=== PATIENT | female | born 1960 ===

== ENCOUNTER → 2018-06-20 | Outpatient (CLI) | payer OTHER ==
--- NOTE | 2018-06-20 13:57 | KCIC ---
MR of the left hip Indication: Primary osteoarthritis of the left hip. Progressing left hip pain for several months. Technique: Standard multiplanar sequences are obtained. FINDINGS: Artifact: Moderate to severe motion degradation. Bones: No bone lesion, acute fracture or acute bone marrow edema. No femoral head osteonecrosis. Effusion: No significant effusion Joint: No advanced primary osteoarthritis. Labrum: No evidence of labral tear or para labral cyst Gluteus minimus tendon: Intact Gluteus medius tendon: Intact Hamstring tendon: Intact Iliopsoas tendon: Intact Rectus femoris tendon attachment:Intact Soft tissue:No significant acute findings. Coronal STIR survey sequence inclusive of the contralateral hip demonstrates artifact at the right hip compatible with hip replacement. Partial sacroiliac joint visualization demonstrates subchondral marrow changes likely degenerative. IMPRESSION: 1. No definite acute abnormality at the left hip. 2. Moderate to severe motion degradation due to involuntary patient coughing and moving. Electronically signed by: Sanchez Martin MD (06/20/2018 1:54 PM) [id number]
== END | disposition home or self-care (01) ==
LOC: KCIC MRI 10:30
PROVIDERS: ATTEND Orthopaedic Surgery Sports Medicine
DX: M16.12 Unilateral primary osteoarthritis, left hip (principal)
CPT/HCPCS: 73721